=== PATIENT | female | born 1995 | race Caucasian/White ===

== ENCOUNTER → 2017-09-15 13:38 | Outpatient (CLI) | payer OTHER, SELFPAY ==
--- NOTE | 2017-09-15 13:44 | CT_ITS ---
CT angio chest HISTORY: Chest pain, dyspnea, tachycardia ITS.REASON: TACHY,CP,ABN EKG,DUSPNEA,GERD,NAUSEA ORDERING PHYSICIAN: Mario Arboleda MD PATIENT AGE: 22 years TECHNIQUE: Helical acquisition obtained following the bolus administration of 75 mL of Isovue 370 followed by a saline bolus. Axial, sagittal, and coronal reformatted images are generated and reviewed. COMPARISON: None FINDINGS: PULMONARY ARTERIES:No pulmonary embolus evident. AORTA:No acute finding. No thoracic aortic aneurysm or dissection evident LUNGS:Unremarkable. No mass or consolidation. PLEURAL SPACES:No significant effusion. No evidence of pneumothorax. HEART:Unremarkable. Normal heart size. No significant pericardial effusion. MEDIASTINAL AND HILAR STRUCTURES:No mediastinal or hilar mass evident. No dominant adenopathy. There triangle shaped soft tissue density in the anterior mediastinum likely related to residual thymic tissue. BONY STRUCTURES:No acute bony abnormalities apparent LYMPH NODES:No enlarged lymph nodes evident UPPER ABDOMEN:There is mild narrowing of the ostium of the iliac artery of approximately 50%. This is smooth in nature. There is a subtle decreased attenuation in the hepatic nonspecific and may be artifactual. IMPRESSION: 1. Negative CTA of the chest. No evidence of pulmonary embolus or aortic aneurysm or dissection. 2. 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
--- NOTE | 2017-09-15 13:46 | CA_ITS ---
PROCEDURE: 2-D M-mode and color Doppler study INDICATIONS FOR THE TEST: Chest pain+ COPD Heart Murmur Tobacco Smoking Palpitations+ Fatigue Syncope Edema Hypertension Diabetes Mellitus Rheumatic Fever SOB RODRÍGUEZ+Obesity Hyperlipidemia Family History HD+ Additional History PATIENT INFORMATION HEIGHT: 68 WEIGHT:225 GENDER: Female B/P: 118/84 2-D/M-MODE INTERPRETATION: 2-D MEASUREMENTS OBSERVED VALUES IN CMS Right Ventricular Dimension (RVDd) 2.5 Interventricular Septum (Thickness)(IVsd) 0.9 Left Ventricular Internal Dimensions(LVIDd) 4.5 Left Ventricular Posterior Wall (Thickness)(LVPWd) 1.0 Aortic Root 2.9 Aortic Cusp Separation 2.3 Left Atrial Dimensions (LAD) 2.8 2D 1. Left atrium is normal size, left ventricle is normal size, there is no concentric left ventricular hypertrophy, visually estimated ejection fraction 55% with no obvious regional wall motion abnormality. 2. The right atrium and right ventricle are normal size and contractility. 3. The aortic, mitral and tricuspid valve are structurally normal. 4. The pulmonic valve is poorly visualized. 5. No significant pericardial effusion noted. DOPPLER INTERROGATION: Doppler interrogation of the aortic, mitral and tricuspid valvular presence of mild mitral and tricuspid regurgitation, tricuspid and enteric velocity insufficient for calculation of the right ventricular systolic pressure, diastolic parameters are within normal range. CONCLUSION: 1. Normal left ventricular size, preserved left ventricular systolic function, visually estimated ejection fraction 55% with no obvious regional wall motion abnormality. Diastolic parameters are within normal range. 2. Mild mitral and tricuspid regurgitation. 3. No significant pericardial effusion noted.
== END ==
PROVIDERS: Visit Provider Internal Medicine
DX: R06.09 Other forms of dyspnea (principal); R94.31 Abnormal electrocardiogram [ECG] [EKG]; R00.0 Tachycardia, unspecified; G44.89 Other headache syndrome; R07.89 Other chest pain; R07.8 Other chest pain; K21.9 Gastro-esophageal reflux disease without esophagitis
CPT/HCPCS: 71275; 93306; Q9967

== ENCOUNTER → 2019-04-11 09:59 | Outpatient (CLI) | payer OTHER, SELFPAY ==
[2019-04-11 11:13] LABS: Microscopic, Urine URINE MICROSCOPIC (MICROSCOPIC)
[2019-04-11 14:54] LABS: Appearance,Urine CLEAR (Clear); Bilirubin,Urine Negative (Negative); Blood, Urine 3+ (Negative); Color,Urine YELLOW (Yellow); Glucose,Urine (UA) Negative (Negative); Ketones,Urine Negative (Negative); Leukocyte Esterase,Urine Negative (Negative); Nitrate,Urine Negative (Negative); PH,Urine 5.5 (5.0-8.5); Protein,Urine Negative (Negative); Urobilinogen,Urine 0.2 EU/dl (0.2)
[2019-04-11 15:30] LABS: WBC,Urine Occasional #/hpf (0-3)
[2019-04-11 15:31] LABS: Bacteria,Urine Trace /lpf; Squamous Epithelial Cell,Urine Occasional #/hpf (0-5)
== END ==
PROVIDERS: PCP Nurse Practitioner; Visit Provider Nurse Practitioner
DX: R30.0 Dysuria (principal); R35.0 Frequency of micturition; R39.15 Urgency of urination; N39.0 Urinary tract infection, site not specified
CPT/HCPCS: 81001

== ENCOUNTER 2020-12-23 18:42 | Emergency (ER) | payer OTHER, SELFPAY ==
[2020-12-23 18:44] VITALS: BP 145/112; PULSE 98; RESP 18; TEMP 36.7; O2SAT 100; BMI 39.1
[2020-12-23 19:12] VITALS: BP 154/76; PULSE 103; RESP 20; TEMP 36.9; O2SAT 100; BMI 39.1
[2020-12-23 19:15] LABS: Microscopic, Urine URINE MICROSCOPIC (MICROSCOPIC)
--- NOTE | 2020-12-23 19:17 | HMH.EDABDPAI ---
ED Disposition Clinical Impression: Epigastric pain Disposition: Home, Self-Care Condition on Discharge: Good Instructions: DI for Acute Abdominal Pain Additional Instructions: TAke pepto bismol. Follow bland diet. Return if new symptoms. Referrals: Mary Ann Aparicio APRN [Primary Care Provider] - - Critical Care Critical Care Time: No Attestation: On 12/23/20, the high probability of a clinically significant, sudden or life threatening deterioration of the following system(s) required my full and direct attention, intervention and personal management. The time I documented below is in addition to time spent performing reported procedures but includes the following listed in this critical care notation. Medical Decision Making - Medical Records Medical records reviewed: Yes: I reviewed the patient's medical records. - Franky Inquiry Pt receiving controlled substance: No Vital Signs: 12/23/20 18:44 12/23/20 19:12 12/23/20 19:55 Temperature 98.0 F 98.4 F 98.4 F Temperature Source Oral Oral Oral Pulse Rate 94 H Pulse Rate [Right Radial] 98 H 103 H Respiratory Rate 18 20 20 Blood Pressure 154/76 H Blood Pressure [Right Arm] 145/112 H 154/76 H Blood Pressure Mean [Right Arm] 123 102 Blood Pressure Source [Right Arm] Automatic Cuff Automatic Cuff Blood Pressure Position [Right Arm] Sitting 02 Sat by Pulse Oximetry 100 100 Oxygen Delivery Method Room Air Room Air Room Air - Lab Data Lab Results 12/23/20 19:02: Urine Color Yellow, Urine Appearance Sl cloudy, Urine pH 6.0, Ur Specific [place] 1.025, Urine Protein Negative, Urine Glucose (UA) Negative, Urine Ketones Negative, Urine Blood Negative, Urine Nitrate Negative, Urine Bilirubin Negative, Urine Urobilinogen 0.2, Ur Leukocyte Esterase Negative, Urine WBC Occasional, Ur Squamous Epith Cells 5-10, Urine Bacteria 1+, Urine Mucus 2+ 12/23/20 19:02: Urine HCG, Qual Negative 12/23/20 19:21: WBC 11.0 H, RBC 4.84, Hgb 14.1, Hct 42.1, MCV 86.9, MCH 29.1, MCHC 33.4, RDW 13.5, Plt Count 366, MPV 7.7, Neut % (Auto) 62.1, Lymph % (Auto) 32.9, [place] % (Auto) 3.2, Eos % (Auto) 1.4, Baso % (Auto) 0.6, Neut # (Auto) 6.9, Lymph # (Auto) 3.6, [place] # (Auto) 0.4, Eos # (Auto) 0.2, Baso # (Auto) 0.1 12/23/20 19:21: Sodium 140, Potassium 3.6, Chloride 104, Carbon Dioxide 25, Anion Gap 14.6, BUN 9, Creatinine 0.60, Estimated Creat Clear 261, Estimated GFR 124, Est GFR ( Amer) 150, Glucose 92, Calcium 9.8, Total Bilirubin 0.9, AST 24, ALT 17, Alkaline Phosphatase 74, Total Protein 8.4 H, Albumin 4.9, Globulin 3.5 H, Albumin/Globulin Ratio 1.4, Lipase 39 Result diagrams: 12/23/20 19:21 12/23/20 19:21 Orders (Tests/Meds): ED MEDICATIONS Discontinued Medications Generic Name Dose Route Start Last Admin Trade Name Freq PRN Reason Stop Dose Admin Lactated Ringer's 1,000 mls @ 999 mls/hr 12/23/20 19:30 12/23/20 19:29 Lactated Ringer's 1000 Ml Bag IV 12/23/20 20:30 999 mls/hr .Q1H1M REHAN Administration Ondansetron HCl 4 mg 12/23/20 19:17 12/23/20 19:28 Ondansetron 4mg/2ml Vial IV 12/23/20 19:18 4 mg ONCE ONE Administration Medical Decision Narrative: Patient presents to the emergency department with nausea and epigastric pain. Patient hemodynamic stable on arrival. Benign abdominal exam. Differential diagnosis does include pancreatitis versus peptic ulcer disease versus gastritis versus duodenitis versus biliary disease versus versus pyelonephritis. Because of exam, I do not believe imaging is indicated at this time. Urinalysis, urine test, CBC, CMP, lipase ordered for further work-up with a fluid bolus and Zofran. Low suspicion for biliary disease and there is no transaminitis or hyperbilirubinemia. Lipase within normal limits as well as other basic lab test. Patient improved after Zofran and tolerates p.o. fluids without difficulty. Unclear etiology of epigastric pain but I do believe patient is safe to b
[2020-12-23 19:18] LABS: Appearance,Urine SL CLOUDY (Clear); Bilirubin,Urine Negative (Negative); Blood, Urine Negative (Negative); Color,Urine YELLOW (Yellow); Glucose,Urine (UA) Negative (Negative); Ketones,Urine Negative (Negative); Leukocyte Esterase,Urine Negative (Negative); Nitrate,Urine Negative (Negative); Protein,Urine Negative (Negative); Specific Gravity, Urine 1.025 (1.005-1.030); Urobilinogen,Urine 0.2 EU/dl (0.2)
[2020-12-23 19:21] LABS: Urine Pregnancy, HCG Qual. Negative (Negative)
[2020-12-23 19:25] LABS: WBC,Urine Occasional #/hpf (0-3)
[2020-12-23 19:26] LABS: Bacteria,Urine 1+ /lpf; Mucus,Urine 2+ /lpf
[2020-12-23 19:33] LABS: Basophils # 0.1 K/mm3 (0-0.2); Basophils % 0.6 % (0.1-2.0); Eosinophils # 0.2 K/mm3 (0.0-0.4); Eosinophils % 1.4 % (0.1-12.0); Hematocrit 42.1 % (37.0-47.0); Hemoglobin 14.1 g/dL (12.2-16.2); Lymphocytes # 3.6 K/mm3 (0.7-4.5); Lymphocytes % 32.9 % (10-50); Mean Corpuscular HGB Conc 33.4 g/dL (31.8-35.4); Mean Corpuscular Hemoglobin 29.1 pg (27.0-31.2); Mean Corpuscular Volume 86.9 fl (81-99); Mean Platelet Volume 7.7 fl (7.4-10.4); Monocytes # 0.4 K/mm3 (0.1-1.0); Monocytes % 3.2 % (1.7-9.3); Neutrophils # 6.9 K/mm3 (1.8-7.8); Neutrophils % 62.1 % (37.0-80.0); Platelet Count 366 K/mm3 (142-424); Red Blood Count 4.84 M/mm3 (4.20-5.40); Red Cell Distribution Width 13.5 % (11.5-17.5)
[2020-12-23 19:38] LABS: Chloride 104 mmol/L (98-107); Sodium 140 mmol/L (136-145)
[2020-12-23 19:39] LABS: Potassium 3.6 mmoL/L (3.5-5.1)
[2020-12-23 19:41] LABS: Alanine Aminotransferase 17 U/L (12-78); Albumin Level 4.9 g/dl (3.5-5.0); Albumin/Globulin Ratio 1.4 (1.1-1.8); Alkaline Phosphatase 74 U/L (38-126); Anion Gap 14.6 mEq/L (5-15); Aspartate Amino Transferase 24 U/L (14-36); Bilirubin,Total 0.9 mg/dl (0.2-1.3); Blood Urea Nitrogen 9 mg/dl (7-17); Calcium 9.8 mg/dl (8.4-10.2); Carbon Dioxide 25 mmol/L (22.0-30.0); Creatinine Clearance Estimated 261 mL/min (50-200); Estimated Glomerular Filt Rate 124 ml/min (>60); GFR (African American) 150 ML/MIN (>60); Globulin 3.5 g/dL (1.3-3.2); Glucose 92 mg/dl (74-100); Lipase 39 U/L (23-300); Total Protein,Serum 8.4 g/dl (6.3-8.2)
[2020-12-23 19:55] VITALS: BP 154/76; PULSE 94; RESP 20; TEMP 36.9; O2SAT 100
== END 2020-12-23 19:58 | disposition home or self-care (01) ==
PROVIDERS: Emergency Provider Emergency Medicine; PCP Nurse Practitioner
DX: R10.13 Epigastric pain (principal); K21.9 Gastro-esophageal reflux disease without esophagitis
CPT/HCPCS: 80053; 81001; 81025; 83690; 85025; 96365; 96375; 99282; J2405

== ENCOUNTER → 2020-12-24 12:40 | Outpatient (CLI) | payer OTHER, SELFPAY ==
--- NOTE | 2020-12-24 12:50 | US_ITS ---
PROCEDURE: US GALLBLADDER CLINICAL INDICATION: ABD PAIN Upper abdominal pain with nausea COMPARISON: CT AGCHEST CT angio chest from 09/15/2017 FINDINGS: Pancreas: The body and head of the pancreas have an unremarkable appearance. The tail the pancreas is not well demonstrated. Liver: Unremarkable. There is appropriate direction of blood flow within a non dilated portal vein. Right kidney: Unremarkable appearing. No hydronephrosis. Gallbladder: No stones are evident. There is no gallbladder wall thickening. Common duct is normal in diameter. IMPRESSION: Unremarkable gallbladder ultrasound. Incomplete visualization of the pancreas. CT may provide further evaluation of the pancreas if clinically warranted Dictated by: Triston Castaneda MD 12/24/2020 18:09 Triston Castaneda MD in [place] 12/24/2020 18:09
== END ==
PROVIDERS: PCP Nurse Practitioner; Visit Provider Nurse Practitioner
DX: R10.10 Upper abdominal pain, unspecified (principal)
CPT/HCPCS: 76705